=== PATIENT | female | born 1960 | race Caucasian/White ===

== ENCOUNTER → 2016-05-03 | Day surgery (SDC) | payer MEDICARE ==
[~2016-05-03] MED LIST: ASPI325T PO; CYCL1TAB29 PO; LIDOCAINE HCL 1% 30 ML VIAL NB ONE; MEPERIDINE HCL 25 MG/ML VIAL IV ONE; METH10TA PO; PANT20 PO; PANT20TA2 PO; PROPOFOL 200 MG/20 ML AMP IV ONE; SERT-129 PO; SIMV20TA PO; SODIUM CHLORIDE 0.9% 10 ML VIAL ONE; methylPREDNISolone ACETATE 80 MG/ML VIAL ONE
--- NOTE | 2016-05-08 07:32 | M6 ---
cc: JOSH RUBIO M.D. DATE: 05/03/2016 DATE OF : 1960 PROCEDURE Caudal epidural steroid injection. History and physical was completed and signed. Consent was signed. Procedure site was marked. Medications were listed and reconciled. Pain score was recorded. Allergies were noted. Time out was taken. Fluoroscopy time was recorded where applicable. Sedation was administered or directed by Dr. Rubio. The patient was given oxygen. The patient was monitored by a registered nurse. Total procedure time was greater than 15 minutes. PROCEDURE NOTE: An IV was started, blood pressure cuff, pulse oximeter and EKG were applied. The patient was placed in the prone position, sedated with small amounts of Versed and propofol titrated to effect. Vital signs were monitored and remained stable throughout the procedure. The sacral and coccygeal area were scrubbed with antimicrobial solution and prepped with 10% Betadine solution. The sacral hiatus was palpated. A 2-inch 20 gauge spinal needle was inserted easily on the first attempt. There was negative aspiration for blood or CSF. There was no apparent paresthesia. The patient was slowly given 20 mL of 0.5% Xylocaine which contained 80 mg of Depo-Medrol. The patient was taken to the recovery area with stable vital signs, neurologically intact. W. MD ADDY Mcclendon/SHAWANDA /10:46 AM /7:25 AM
== END | disposition home or self-care (01) ==
LOC: PHSDC 09:00
PROVIDERS: ATTEND Pain Medicine Interventional Pain Medicine
DX: M54.5 Low back pain (principal)
CPT/HCPCS: 62323; 99152; J1040; J2175